=== PATIENT | male | born 2000 | race Caucasian/White ===

== ENCOUNTER 2021-08-29 20:24 | Emergency (ER) | payer BC ==
[~2021-08-29] VITALS: Ht 182.9 cm; Wt 70.3 kg
[2021-08-29 20:46] VITALS: BP 111/57
--- NOTE | 2021-08-29 20:49 | NUR ---
to lobby a/w bed ambulatory
--- NOTE | 2021-08-29 21:50 | NUR ---
seen and examined by RAS
--- NOTE | 2021-08-29 22:35 | NUR ---
pt taken to ct via w/c
--- NOTE | 2021-08-29 22:45 | NUR ---
pt returned from ct
[2021-08-29 23:01] VITALS: BP 111/57
--- NOTE | 2021-08-29 23:01 | NUR ---
Patient discharged with v/s stable. Written and verbal after care instructions given and explained. Patient verbalized understanding. Ambulatory with to car. All questions addressed prior to discharge. Advised to follow up with PMD.
== END 2021-08-29 22:54 | disposition home or self-care (01) ==
LOC: MED 20:24
DX: G44.001 Cluster headache syndrome, unspecified, intractable (principal)
CPT/HCPCS: 70450; 99284